=== PATIENT | female | born 1950 | race Caucasian/White ===

== ENCOUNTER 2019-08-19 12:56 | Emergency (ER) | payer MEDICARE, SELFPAY ==
[2019-08-19] VITALS (9 sets, daily range): BP systolic 111–157; BP diastolic 70–87; PULSE 64–68; RESP 13–21; TEMP 36.5–36.7; O2SAT 93–98
--- NOTE | 2019-08-19 13:05 | NUR.NOTE ---
Pt reoorts approx 30 min of mid chest pressure radiating to back and left axilla. Pt states pain began during a stressful episode at work this afternoon. Reports SOB. SR on monitor. LSCTA. #18 RAC, labs drawn.
[2019-08-19] MEDS: Aspirin 81 MG CHEW 324 MG CH (13:23)
--- NOTE | 2019-08-19 13:25 | ED.GENADUL_ITS ---
Discharge Plan Disposition Patient Disposition: [facility] Condition: Serious Discharge Details Chief Complaint: Chest Pain Clinical Impression: Acute non-ST elevation myocardial infarction (NSTEMI) Primary Care Provider: [place],Local ED Provider: Mckenna Avila [place] Meds and New Rx's Prescriptions: No Action cyclobenzaprine 10 mg Tablet 10 mg PO TID PRNRF: 0 latanoprost 0.005 % Drops 1 drp OPHTHALMIC (EYE) DAILY RF: 0 sertraline 100 mg Tablet 100 mg PO DAILY RF: 0 levothyroxine 100 mcg Tablet 100 mcg PO DAILY RF: 0 amitriptyline 10 mg Tablet 10 mg PO QHS RF: 0 losartan 25 mg Tablet 25 mg PO DAILY RF: 0 gabapentin 300 mg Capsule 300 mg PO QHS RF: 0 cholecalciferol (vitamin D3) 25 mcg (1,000 unit) Tablet 1,000 unit PO DAILY RF: 0 B complex 26-lcofa-V-biot-zinc [id number] je-nf-owe-mg Tablet 1 tab PO DAILY RF: 0 esomeprazole magnesium 20 mg Tablet,Delayed Release (Dr/Ec) 20 mg PO DAILY RF: 0 Hanover-3 350 mg-235 mg- 90 mg-597 mg Capsule,Delayed Release(Dr/Ec) 1 cap PO DAILY RF: 0 Discharge Data Discharge Date/Time-TO BE ENTERED AT DEPARTURE: 08/19/19 18:32 Medical Decision Making <GABRIELA Marte - Last Filed: 08/19/19 15:47> This is a 69-year-old female with sudden substernal chest pain rating to her left arm that began roughly 30-35 minutes ago after a stressful event at work. Reports the pain at a 6 out of 10 and is squeezing in nature. Denies any cardiac history. She does have hypertension. Will initiate a cardiac work-up and give full dose aspirin. Given her presentation which is quite concerning we will also write for 0.4 nitro sublingual every 5 minutes as needed. Initial EKG performed at 1303 reveals sinus rhythm, ventricular rate of 66. There does appear to be questionable mild J-point in V2 and a mild depression between her P and QRS complex in lead I. Does not appear to be acute STEMI After 3 subsequent nitros patient reports that she is pain-free although still has a sensation. She is no longer tearful or anxious. Blood pressure responded nicely to the 3 nitro. Laboratory values reveal troponin of 0.08. At this time patient started with heparin drip and bolus. Repeat EKG at 1335 when patient reported no pain is essentially unchanged, ventricular rate of 62, sinus rhythm. J pointing of V2 and mild depression in lead I is unchanged. I have reached out to cardiology team at [facility]. I spoke with body team member Marvin, she recommended Plavix 300, Lipitor 40, initiating a low-dose nitro drip. She is able to accept care of the patient to the care of Dr. Pack but likely cannot accept care until tomorrow. We will treat this as ACS but has not been till 48 hours for more definitive intervention. They have asked if we can keep the patient here at our facility as she is currently hemodynamically stable. I have reached out to Dr. Azul who would like a delta troponin before she makes a decision whether or not the patient can be held in our facility overnight and transfer tomorrow. Troponin to be drawn at 1615 Patient reports no pain, no sensation. Repeat EKG performed at 1545 reveals sinus rhythm, ventricular of 64. There is not appear to be any J-point in V2. Imaging Data Radiologic Study: Attestation: I personally reviewed and interpreted this imaging study as follows: Imaging: X-Ray Radiologist's impression: Negative per radiology, chest x-ray Lab Data Lab results reviewed: Yes I reviewed the patient's lab results. Lab results narrative: Laboratory Tests Range/Units 08/19/19 08/19/19 08/19/19 13:00 13:00 13:00 WBC (4.4-10.8) k/cumm 6.05 RBC (4.00-5.20) m/cumm 5.22 H Hgb (12.0-15.5) g/dL 15.1 Hct (36.0-46.0) % 44.6 MCV (80-95) fL 85.4 MCH (27.0-33.0) pg 28.9 MCHC (32.0-36.0) g/dL 33.9 RDW (11.7-14.6) % 12.2 Plt Count (130-400) x1000/uL 242 MPV (8.0-11.0) fL 11.0 Immature Gran % % 0.3 Neutrophils % 65.2 Lymphocytes % 21.8 Monocytes % 9.4 Eosinophils % 3.0 Basophils % 0.3 Absolute Neutrophils (1.2-6.7) k/cumm 3.94 Absolute Lymphocytes (1.2-3.4) k/cumm 1.32 Absolute Monocytes (0.11-0.7) k/cumm 0.57 Absolute Eosinophils (0.0-0.7) k/cumm 0.18 Absolute Basophils (0.0-0.2) k/cumm 0.02 PT (9.3-11.0) sec 10.6 INR (0.9-1.1) 1.1 APTT (21.0-31.4) sec 23.4 Sodium (136-145) mmol/L 141 Potassium (3.5-5.1) mmol/L 3.7 Chloride (98-107) mmol/L 103 Carbon Dioxide (21.0-32.0) mmol/L 26.4 Anion Gap (3-11) mmol/L 11.6 H BUN (7-18) mg/dL 18 Creatinine (0.55-1.02) mg/dL 0.94 Estimated GFR/1.73 m2 (mL/min/1.73m2) 59.22 Glucose (74-106) mg/dL 97 Calcium (8.5-10.1) mg/dL 9.4 Magnesium (1.8-2.4) mg/dL 1.9 Total Bilirubin (0.2-1.0) mg/dL 0.4 AST (15-37) U/L 15 ALT (14-59) U/L 24 Alkaline Phosphatase (46-116) U/L 97 Troponin I (<0.06) ng/Ml 0.08 H* NT-Pro-B Natriuret Pep (<300) pg/mL 214 Total Protein (6.4-8.2) g/dL 7.3 Albumin (3.4-5.0) g/dL 4.5 TSH Range/Units 08/19/19 14:57 WBC (4.4-10.8) k/cumm RBC (4.00-5.20) m/cumm Hgb (12.0-15.5) g/dL Hct (36.0-46.0) % MCV (80-95) fL MCH (27.0-33.0) pg MCHC (32.0-36.0) g/dL RDW (11.7-14.6) % Plt Count (130-400) x1000/uL MPV (8.0-11.0) fL Immature Gran % % Neutrophils % Lymphocytes % Monocytes % Eosinophils % Basophils % Absolute Neutrophils (1.2-6.7) k/cumm Absolute Lymphocytes (1.2-3.4) k/cumm Absolute Monocytes (0.11-0.7) k/cumm Absolute Eosinophils (0.0-0.7) k/cumm Absolute Basophils (0.0-0.2) k/cumm PT (9.3-11.0) sec INR (0.9-1.1) APTT (21.0-31.4) sec Sodium (136-145) mmol/L Cancelled Potassium (3.5-5.1) mmol/L Cancelled Chloride (98-107) mmol/L Cancelled Carbon Dioxide (21.0-32.0) mmol/L Cancelled Anion Gap (3-11) mmol/L Cancelled BUN (7-18) mg/dL Cancelled Creatinine (0.55-1.02) mg/dL Cancelled Estimated GFR/1.73 m2 (mL/min/1.73m2) Cancelled Glucose (74-106) mg/dL Cancelled Calcium (8.5-10.1) mg/dL Cancelled Magnesium (1.8-2.4) mg/dL Total Bilirubin (0.2-1.0) mg/dL Cancelled AST (15-37) U/L Cancelled ALT (14-59) U/L Cancelled Alkaline Phosphatase (46-116) U/L Cancelled Troponin I (<0.06) ng/Ml NT-Pro-B Natriuret Pep (<300) pg/mL Total Protein (6.4-8.2) g/dL Cancelled Albumin (3.4-5.0) g/dL Cancelled TSH Cancelled ECG Data Attestation: I personally reviewed and interpreted this ECG (s) as follows: Interpretation: EKG performed at 1303. Reveals sinus rhythm, ventricular of 66. Mild J-point in V2 and slight depression between P and QRS complex in lead I. <GABRIELA Land - Last Filed: 08/19/19 20:08> Care transitioned to myself from Willie Kinsey PA-C, please see his initial note for history, work-up and laboratory results. Care transition myself with repeat troponin pending. Repeat troponin is 4.23. We will contact [facility] once again. I reevaluated the patient she reports that she is having some increased pressure on the left side of her chest as well as a headache. Will give 2 mg of morphine to help with her discomfort. Her pressures are stable with systolic of 120. As her pain is increasing, plan to repeat EKG. Reviewd note from primary care. Patient's past medical history includes GERD, hypothyroidism, hypertension, pseudotumor cerebri, MS, neuropathy, osteopenia, hyperlipidemia, migraine, ambulatory dysfunction, depression. Repeat EKG was also reviewed by Dr. Connor. Continues to have some slight elevation in V2 as well as T wave inversions in 1 and aVL. Overall, remains unchanged from the third EKG is performed that she has been here. Contacted by [facility] cardiology who advised trying to uptitrate the patient's nitro. They advised that with her discomfort despite the nitro drip they will review the EKGs and likely should be transferred to their facility today. Spoke with [facility] again who advised that as she is improving, there is no need for emergent transfer despite her persistent substernal chest discomfort. They advise going up on her nitro drip until her systolic blood pressure is less than 90. At this time, they are unable to accommodate the patient. Contacted [facility], awaiting callback. They did let me know however that they are likely unable to accept this patient as well. Consulted with Dr. Hernandez who accepted the patient in transfer to [facility]. Patient is feeling improved after her nitro, reports that the pain is now a 1 out of 10 but she continues to feel pressure. Vital signs remained stable. Patient transferred via ground EMS to [facility]. HPI <GABRIELA Marte - Last Filed: 08/19/19 15:47> General Mode of arrival: ambulatory . Date/Time Provider Initiated Documentation: 08/19/19 13:02 . Limitations to Documentation: no limitations . Information obtained by: patient . HPI Narrative: This is a 69-year-old female presenting to the ER reporting central chest pain radiating to her left arm that began approximately 35 minutes ago after having a stressful event at work. She has a history of hypertension, MS, pseudotumor cerebri. Patient reports that she is not a smoker and does not drink. Patient has never had anything like this before. She does report having had a normal stress test 20 or 30 years ago. She reports having had a headache 2 days ago but no headache now. The pain is currently 5 or 6 out of 10 but at its max was a 7 out of 10 and felt like a squeezing. She denies recent illness or trauma. Denies visual changes, shortness of breath, abdominal pain, nausea, vomiting, numbness, tingling, weakness. She does not take aspirin daily Related Data Home Medications Medication Instructions Recorded Confirmed B complex 29-smfpc-T-biot-zinc 1 tab PO DAILY 08/19/19 08/19/19 amitriptyline 10 mg PO QHS 08/19/19 08/19/19 cholecalciferol (vitamin D3) 1,000 unit PO DAILY 08/19/19 08/19/19 cyclobenzaprine 10 mg PO TID PRN 08/19/19 08/19/19 esomeprazole magnesium 20 mg PO DAILY 08/19/19 08/19/19 gabapentin 300 mg PO QHS 08/19/19 08/19/19 latanoprost 1 drp OPHTHALMIC (EYE) DAILY 08/19/19 08/19/19 levothyroxine 100 mcg PO DAILY 08/19/19 08/19/19 losartan 25 mg PO DAILY 08/19/19 08/19/19 omega 9-uvc-gcm-fish oil [Hanover-3] 1 cap PO DAILY 08/19/19 08/19/19 sertraline 100 mg PO DAILY 08/19/19 08/19/19 Allergies Allergy/AdvReac Type Severity Reaction Status Date / Time propoxyphene [From Darvon] Allergy Intermediate Hives Unverified 08/19/19 13:01 General Stated Complaint: Chest Pain BELINDA: 2 Review of Systems <GABRIELA Marte - Last Filed: 08/19/19 15:47> Constitutional Constitutional: Denies chills, Denies fatigue, Denies fever(s) and Denies we akness Eyes Eyes: Denies change in vision ENT Ears, Nose, Mouth, and Throat: Denies dizziness Cardiovascular Cardiovascular: Reports chest pain, Denies lightheadedness and Denies dyspnea Respiratory Respiratory: Denies cough, Denies dyspnea and Denies wheezing Gastrointestinal Gastrointestinal: Denies abdominal pain, Denies nausea and Denies vomiting Genitourinary Genitourinary: Denies dysuria Musculoskeletal Musculoskeletal: Reports back pain (Reports that the chest pain does radiate to her left mid-upper back), Denies myalgias, Denies numbness and Denies tingling Integumentary/Breasts Skin/Breast: Denies rash Neurologic Neurologic: Denies dizziness, Denies numbness, Denies tingling and Denies weakness Endocrine Endocrine: Denies fatigue Allergic/Immunologic Allergic/Immunologic: Denies wheezing PFSH <GABRIELA Marte - Last Filed: 08/19/19 15:47> Social History Smoking/Tobacco Use Status: Former Tobacco Use Alcohol Intake: never Details: CBD oil occasionally Do you feel safe at home: Yes Do you feel safe in your relationship?: Yes Exam <GABRIELA Marte - Last Filed: 08/19/19 15:47> Const General: cooperative, healthy appearing, comfortable and anxious (Tearful) Orientation: alert, awake and oriented x3 HENMT Head: normal to inspection, normocephalic and atraumatic Mouth: moist mucous membranes Throat: posterior oropharynx normal Eyes Conjunctivae: conjunctivae normal Sclera: sclerae normal Cornea: corneas normal Pupils: PERRL EOM: EOM intact bilaterally Direct ophthalmoscopy: normal light reflex Neck Neck: normal visual inspection, full ROM, no lymphadenopathy, no meningeal signs, trachea midline and supple Chest Chest: normal inspection of the chest Resp Effort & Inspection: normal respiratory effort and able to speak in complete sentences Auscultation: clear to auscultation bilaterally Cardio Rate: regular rate Rhythm: regular rhythm Pulses: normal peripheral pulses GI Inspection: normal to inspection Palpation: soft, not firm, no guarding and nontender Auscultation: normal bowel sounds Back/Spine/Pelvis Back: No back tenderness Skin General skin exam: no rashes or lesions noted Neuro General: alert, awake, oriented x3, moves all extremities and no focal motor deficits Motor: muscle tone normal throughout and strength 5/5 throughout Sensory Exam: no sensory deficits noted Extrem General: normal to inspection, full ROM and normal capillary refill Psych Appearance: grossly normal Mental Status: mental status grossly normal Course <GARBIELA Marte - Last Filed: 08/19/19 15:47> Vital Signs Vital signs: Vital Signs Temperature 36.7 C 08/19/19 13:03 Pulse 68 08/19/19 13:03 Respiratory Rate 15 08/19/19 13:03 Blood Pressure 157/87 H 08/19/19 13:03 Pulse Oximetry 98 08/19/19 13:03 Temperature 36.7 C 08/19/19 13:03 Temperature Source Temporal Artery Scan 08/19/19 13:03 Pulse 68 08/19/19 13:03 Respiratory Rate 13 08/19/19 13:09 Respiratory Effort 08/19/19 13:09 Respiratory Depth Normal 08/19/19 13:09 Respiratory Pattern Normal 08/19/19 13:09 Blood Pressure 157/87 H 08/19/19 13:03 Blood Pressure Position Supine 08/19/19 13:03 Pulse Oximetry 98 08/19/19 13:03 Oxygen Delivery Method Room Air 08/19/19 13:03 Oxygen Flow Rate 0 08/19/19 13:03 Pain Level 7 08/19/19 13:03 Critical Care Time <GABRIELA Marte - Last Filed: 08/19/19 15:47> Critical Care Time Critical Care Time: Yes Total Critical Care Time: 35 Attestation: Upon my evaluation, this patient had a high probability of clinically significant, life-threatening deterioration due to their current medical conditions, which required my direct attention, intervention, and personal management. I have personally provided greater than 30 minutes of critical care time exclusive of the time spend on separately billable procedures. Time includes obtaining a history, examining the patient, pulse oximetry, review of laboratory data, radiology results, discussion with consultants, arranging urgent treatment with development of a management plan, evaluation of patient's response to treatment, and monitoring for potential decompensation. Interventions were performed as documented above. Sign Out <GABRIELA Marte - Last Filed: 08/19/19 15:47> Sign Out Data: Sign Out Comment: Awaiting repeat troponin to determine if patient can be kept at our facility and transferred tomorrow or will need a more emergent transfer. Last updated by Willie Kinsey PA at 08/19/19 15:46
[2019-08-19 13:31] LABS: Abs Immature Grans 0.02 k/cumm (0.0-0.09); Absolute Basophil Count 0.02 k/cumm (0.0-0.2); Absolute Eosinophil Count 0.18 k/cumm (0.0-0.7); Absolute Lymphocyte Count 1.32 k/cumm (1.2-3.4); Absolute Monocyte Count 0.57 k/cumm (0.11-0.7); Absolute Neutrophil Count 3.94 k/cumm (1.2-6.7); Basophils % 0.3; HCT 44.6 % (36.0-46.0); HGB 15.1 g/dL (12.0-15.5); Immature Grans % 0.3 %; Lymphocytes % 21.8; Mean Corp. HGB Concentration 33.9 g/dL (32.0-36.0); Mean Corpuscular Hemoglobin 28.9 pg (27.0-33.0); Mean Corpuscular Volume 85.4 fL (80-95); Monocytes % 9.4; Neutrophils % 65.2; Platelet Count 242 x1000/uL (130-400); RBC 5.22 m/cumm (4.00-5.20); RBC Distribution Width 12.2 % (11.7-14.6); White Blood Cell Count 6.05 k/cumm (4.4-10.8)
[2019-08-19] MEDS: Normal Saline Flush 10 ML SYR IVP (13:37)
--- NOTE | 2019-08-19 13:40 | DI.RAD_ITS ---
EXAM: XR PORTABLE CHEST AP CLINICAL HISTORY: chest pain. TECHNIQUE: 2D digital imaging was performed. COMPARISON: No exams were available for comparison FINDINGS: LUNGS: Clear. No pleural abnormality seen. HEART: Normal. MEDIASTINUM: Normal. OTHER FINDINGS: None. IMPRESSION: No acute pulmonary findings. DATA REPOSITORY: RADIATION DOSE DELIVERED:
[2019-08-19 13:44] LABS: INR 1.1 (0.9-1.1); PTT Activated 23.4 sec (21.0-31.4); Prothrombin Time 10.6 sec (9.3-11.0)
[2019-08-19 13:50] LABS: ALT 24 U/L (14-59); AST 15 U/L (15-37); Albumin 4.5 g/dL (3.4-5.0); Alkaline Phosphatase 97 U/L (46-116); Anion Gap 11.6 mmol/L (3-11); BUN 18 mg/dL (7-18); Bilirubin, Total 0.4 mg/dL (0.2-1.0); CO2 26.4 mmol/L (21.0-32.0); CREATININE 0.94 mg/dL (0.55-1.02); Calcium 9.4 mg/dL (8.5-10.1); Chloride 103 mmol/L (98-107); Estimated GFR 59.22 (mL/min/1.73m2); Glucose 97 mg/dL (74-106); Magnesium 1.9 mg/dL (1.8-2.4); NT-proBNP 214 pg/mL (<300); Potassium 3.7 mmol/L (3.5-5.1); Sodium 141 mmol/L (136-145); Total Protein 7.3 g/dL (6.4-8.2)
[2019-08-19 13:52] LABS: Troponin I 0.08 ng/Ml (<0.06)
--- NOTE | 2019-08-19 13:54 | NUR.NOTE ---
Nursing Note:Trop critically high (0.08). GABRIELA Resendez) made aware.
--- NOTE | 2019-08-19 14:00 | NUR.NOTE ---
Pain from 5 to 2 s/p 3 nitro SL. Continues to have chest heaviness/squeezing pain. Pt had breakfast at 0700, NPO since.
--- NOTE | 2019-08-19 14:12 | NUR.NOTE ---
Heparin bolus 4600 units. Drip started at 950 units/hr. Next PTT due at 2009
[2019-08-19] MEDS: Clopidogrel 300 MG TAB PO (15:31)
[2019-08-19] MEDS: Atorvastatin 40 MG TAB PO (15:31)
[2019-08-19] MEDS: Acetaminophen 500 MG TAB 1000 MG PO (16:19)
[2019-08-19 16:50] LABS: Troponin I 4.28 ng/Ml (<0.06)
--- NOTE | 2019-08-19 17:31 | NUR.NOTE ---
Hoang Zaidi [facility] [phone]
--- NOTE | 2019-08-19 18:11 | NUR.NOTE ---
Pt accepted at [facility] 4,
--- NOTE | 2019-08-19 18:21 | NUR.NOTE ---
Call to [facility] to give report, they will call back [facility] arrives to transport pt. Pt states daughter and know she is being transferred. Sent with all belongings.
--- NOTE | 2019-08-19 18:41 | NUR.NOTE ---
Report to Erin at [facility] [place]. Pt daughter called and spoke with Mckenna OCHOA.
== END 2019-08-19 18:32 ==
PROVIDERS: Physician Assistant; Emergency Provider Physician Assistant
DX: I21.4 Non-ST elevation (NSTEMI) myocardial infarction (principal); I10 Essential (primary) hypertension
CPT/HCPCS: 80053; 93005; 96365; 96366; 96368; 96375; 96376; 99285; 99291; 71045; 83735; 83880; 84443; 84484; 85025; 85610; 85730; 93010